=== PATIENT | male | born 1995 | race Caucasian/White ===

== ENCOUNTER 2016-11-23 19:08 | Emergency (ER) | payer OTHER ==
[2016-11-23 19:33] VITALS: BP 172/96; PULSE 80; RESP 20; TEMP 98.8
--- NOTE | 2016-11-23 20:26 | XR ---
EXAMINATION TYPE: XR finger RT DATE OF EXAM: 11/23/2016 CLINICAL HISTORY: pain Right first digit. TECHNIQUE: 3 views of the right first digit are submitted. COMPARISON: None FINDINGS: No displaced fracture is seen with certainty. Joint spaces are well-preserved. Correlate for soft tissue injury. IMPRESSION: No acute displaced fracture or dislocation.
--- NOTE | 2016-11-23 20:55 | ED ---
Upper Extremity HPI - General Chief Complaint: Extremity Injury, Upper Stated Complaint: [facility] Time Seen by Provider: 11/23/16 19:56 Source: patient, RN notes reviewed, old records reviewed Mode of arrival: ambulatory Limitations: no limitations - History of Present Illness Initial Comments: Patient is a 21 year old male with brusing and pressure underneath his right thumbnail after it was crushed under a piece of equipment at work. Patient state that his thumb feels like it is pulsating. Patient reports he is right handed. Patient states that he has full range of motion of the finger. Denies peripheral paresthesias. Place: home - Related Data Home Medications Medication Instructions Recorded Confirmed Gabapentin [Neurontin] 100 mg PO HS 11/23/16 11/23/16 Sertraline [Zoloft] 100 mg PO DAILY 11/23/16 11/23/16 Allergies Allergy/AdvReac Type Severity Reaction Status Date / Time No Known Allergies Allergy Verified 11/23/16 19:33 Review of Systems ROS Statement: Those systems with pertinent positive or pertinent negative responses have been documented in the HPI. ROS Other: All systems not noted in ROS Statement are negative. Past Medical History Past Medical History: No Reported History History of Any Multi-Drug Resistant Organisms: None Reported Past Surgical History: No Surgical Hx Reported Past Psychological History: Anxiety, Depression Smoking Status: Never smoker Past Alcohol Use History: Rare Past Drug Use History: None Reported General Exam - General Exam Comments Initial Comments: Pleasant 21 year old male, no distress. Limitations: no limitations General appearance: alert, in no apparent distress Head exam: Present: atraumatic, normocephalic, normal inspection Eye exam: Present: normal appearance, PERRL, EOMI. Absent: scleral icterus, conjunctival injection, periorbital swelling ENT exam: Present: normal exam, mucous membranes moist Neck exam: Present: normal inspection. Absent: tenderness, meningismus, lymphadenopathy Respiratory exam: Present: normal lung sounds bilaterally. Absent: respiratory distress, wheezes, rales, rhonchi, stridor Cardiovascular Exam: Present: regular rate, normal rhythm, normal heart sounds. Absent: systolic murmur, diastolic murmur, rubs, gallop, clicks GI/Abdominal exam: Present: soft, normal bowel sounds. Absent: distended, tenderness, guarding, rebound, rigid Extremities exam: Present: normal inspection, full ROM, normal capillary refill , other (subungal hematoma under right thumb nail, full range of motion of right hand and fingers, and wrist. ). Absent: tenderness, pedal edema, joint swelling, calf tenderness Back exam: Present: normal inspection Neurological exam: Present: alert, oriented X3, CN II-XII intact Psychiatric exam: Present: normal affect, normal mood Skin exam: Present: warm, dry, intact, normal color. Absent: rash Course Vital Signs 11/23/16 19:29 Temperature 98.8 F Pulse Rate 80 Respiratory 20 Rate Blood Pressure 172/96 O2 Sat by Pulse 98 Oximetry Procedures - Procedures Initial comment: Right Thumb nail trephination with cautery pen. Thumb was cleaned with betadine , and small hole placed in middle thumb nail and blood collection was released. Patient bleeding was controlled and placed in a sterile gauze with bacitracin. Discussed follow up with PCP and monitoring for infection. Medical Decision Making - Medical Decision Making Patient is a 21 year old male with brusing and pressure underneath his right thumbnail after it was crushed under a piece of equipment at work. Patient state that his thumb feels like it is pulsating. Patient reports he is right handed. Patient states that he has full range of motion of the finger. Denies peripheral paresthesias. Right thumb xray negative for fracture. Right Thumb nail trephination with cautery pen. Thumb was cleaned with betadine, and small hole placed in middle thumb nail and blood collection was released. Patient bleeding was controlled and placed in a sterile gauze with bacitracin. Discussed follow up with PCP and monitoring for infection. Patient tolerated procedure well, and pain is diminished. Patient understands treatment plan and return parameters discussed. Disposition Clinical Impression: Subungual hematoma Disposition: HOME SELF-CARE Condition: Good Instructions: Hematoma (ED), Nail Avulsion (ED) Additional Instructions: Keep the area covered for the next 24 hours. Monitor for any signs of infection including redness swelling or drainage. Patient may lose the nail. Follow-up with a primary care provider. Return to the emergency department if any alarming signs or symptoms occur. Motrin or Tylenol for pain. Referrals: Jonathan Webb MD [Primary Care Provider] - 1-2 days Time of Disposition: 20:54
== END 2016-11-23 21:09 | disposition home or self-care (01) ==
LOC: EC 19:08
DX: S60.011A Contusion of right thumb without damage to nail, initial encounter (principal); F41.9 Anxiety disorder, unspecified; F32.9 Major depressive disorder, single episode, unspecified; W20.8XXA Other cause of strike by thrown, projected or falling object, initial encounter; Y92.009 Unspecified place in unspecified non-institutional (private) residence as the place of occurrence of the external cause
CPT/HCPCS: 99283